=== PATIENT | male | born 1985 | race Caucasian/White ===

== ENCOUNTER 2018-11-02 13:39 | Emergency (ER) | payer SELFPAY ==
[~2018-11-02] VITALS: Ht 182.9 cm; Wt 104.3 kg
--- NOTE | 2018-11-02 13:39 | NUR ---
Patient BIBA BLS, transferred to bed 10. RN evaluating patient at bedside.
[2018-11-02 13:42] VITALS: BP 135/81
--- NOTE | 2018-11-02 13:43 | NUR ---
TO ED 10 VIA EMS.
--- NOTE | 2018-11-02 14:10 | NUR ---
PT REFUSES TO BE ON MONITOR, STATES HE WANTS TO LEAVE , DR SWANSON MADE AWARE.
[2018-11-02 14:17] VITALS: BP 135/81
--- NOTE | 2018-11-02 14:17 | NUR ---
PT AMBULATORY , EVEN STEADY GAIT, PT AWAKE AND ALERT, PT GIRLFRIEND IN ER TO TAKE PT HOME. PT DOES NOT WANT TO BE SEEN BY MD OR HAVE ANY MEDICATIONS. PT IS LEFT WITH OUT BEING SEEN AT THIS TIME. IV FROM LEFT AC REMOVED, BANDAGE APPLIED.
== END 2018-11-02 14:17 | disposition left against medical advice (07) ==
LOC: MED 13:39
DX: R56.9 Unspecified convulsions (principal); Z53.21 Procedure and treatment not carried out due to patient leaving prior to being seen by health care provider